=== PATIENT | female | born 1990 | race American Indian/Alaskan Native ===

== ENCOUNTER 2017-09-29 01:11 | Emergency (ER) | payer OTHER ==
[2017-09-29 01:53] VITALS: BP 116/78; PULSE 82; RESP 16; TEMP 98.5; O2SAT 99
[2017-09-29] MEDS ORDERED: Tdap Vaccine 0.5 ml Vial (10-64 yrs) IM ONE ×2 (04:07→04:10)
--- NOTE | 2017-09-29 04:16 | ED PDOC ---
Lower Extremity Pain/Injury Time Seen by Provider: 09/29/17 03:08 Chief Complaint (Nursing): Lower Extremity Problem/Injury Chief Complaint (Provider): Lower Extremity Problem/Injury History Per: Patient History/Exam Limitations: no limitations Onset/Duration Of Symptoms: Hrs (x 5) Current Symptoms Are (Timing): Still Present Additional Complaint(s): 26 year old female presents to the ED with right knee injury that occurred 5 hours ago. Patient reports a piece of glass fell onto her leg causing a laceration. Denies other medical complaints. Her Tetanus vaccination is not UTD. PMD: Dr. Sherry Vega Past Medical History Reviewed: Historical Data, Nursing Documentation, Vital Signs Vital Signs: Last Vital Signs Temp 98.5 F 09/29/17 01:50 Pulse 82 09/29/17 01:50 Resp 16 09/29/17 01:50 BP 116/78 09/29/17 01:50 Pulse Ox 99 09/29/17 01:50 - Medical History PMH: No Chronic Diseases - Surgical History Surgical History: Tonsillectomy - Family History Family History: States: Unknown Family Hx - Allergies Allergies/Adverse Reactions: Allergies Allergy/AdvReac Type Severity Reaction Status Date / Time No Known Allergies Allergy Verified 09/29/17 01:53 Review of Systems ROS Statement: Except As Marked, All Systems Reviewed And Found Negative Musculoskeletal: Positive for: Leg Pain (right knee laceration) Physical Exam - Reviewed Nursing Documentation Reviewed: Yes Vital Signs Reviewed: Yes - Physical Exam Appears: Positive for: No Acute Distress (comfortable) Head Exam: Positive for: ATRAUMATIC, NORMAL INSPECTION, NORMOCEPHALIC Extremity: Positive for: Normal ROM (full at right knee), Other (4 cm superficial laceration at suprapatella region of right knee; no active bleeding) . Negative for: Deformity, Swelling Neurologic/Psych: Positive for: Alert, Oriented (x 3). Negative for: Motor/ Sensory Deficits - ECG O2 Sat by Pulse Oximetry: 99 (RA) Pulse Ox Interpretation: Normal Medical Decision Making Medical Decision Makin:07 Initial Plan: --tetanus 0.5 ml IM Scribe Attestation: Documented by Ivory Light, acting as a scribe for Jim Fofana MD Provider Scribe Attestation: All medical record entries made by the Scribe were at my direction and personally dictated by me. I have reviewed the chart and agree that the record accurately reflects my personal performance of the history, physical exam, medical decision making, and the department course for this patient. I have also personally directed, reviewed, and agree with the discharge instructions and disposition. Disposition - Clinical Impression Clinical Impression: Superficial laceration - Patient ED Disposition Is Patient to be Admitted: No Doctor Will See Patient In The: Office Counseled Patient/Family Regarding: Studies Performed, Diagnosis, Need For Followup - Disposition Disposition: Routine/Home Disposition Time: 04:30 Condition: GOOD Additional Instructions: Follow up with your PCP in 4-5 days. Instructions: Taking Care of Cuts and Scrapes
== END 2017-09-29 04:45 | disposition home or self-care (01) ==
LOC: H.ER 01:11
DX: S81.011A Laceration without foreign body, right knee, initial encounter (principal); W25.XXXA Contact with sharp glass, initial encounter; Y99.0 Civilian activity done for income or pay